=== PATIENT | male | born 1995 | race Asian ===

== ENCOUNTER 2019-01-21 04:15 | Emergency (ER) | payer SELFPAY ==
[~2019-01-21] VITALS: Ht 170.2 cm; Wt 76.2 kg
[2019-01-21 04:15] VITALS: BP 166/87
--- NOTE | 2019-01-21 04:15 | NUR ---
BIB WHEELCHAIR TO ER BED 9
--- NOTE | 2019-01-21 04:23 | NUR ---
Patient being evaluated by physician at bedside.
[2019-01-21] MEDS ORDERED: NACL 0.9% 1,000 ML IV ONE ×2 (04:25→05:35)
[2019-01-21] MEDS ORDERED: LORazepam 2 MG/ML VIAL IVP ONE (04:25)
--- NOTE | 2019-01-21 04:30 | NUR ---
23/M BIB FAMILY, C/O PALPITATIONS THIS [employer]. PER PT, PT TOOK COENZYME Q10, GLUCOSAMINE, B12 AND MILK THISTLE. DENIES PAIN. DENIES N/V. PT NOTED WITH MILD RESTLESSNESS AND FIDGETING. PT AWAKE AND ALERT, ANXIOUS APPEARING, SKIN NORMAL WARM AND DRY, RR EVEN AND MILDLY LABORED. DENIES HX OR RX. DENIES ALCOHOL OR SUBSTANCE ABUSE.
[2019-01-21 04:48] LABS: BASOPHILS % (AUTO) 0.3 % (0.0-2.0); EOSINOPHILS % (AUTO) 0.3 % (0.0-4.0); HEMATOCRIT 42.8 % (36-52); HEMOGLOBIN 14.5 g/dL (12.0-18.0); LYMPHOCYTES # (AUTO) 3.3 K/uL (2.0-11.5); LYMPHOCYTES % (AUTO) 29.7 % (20.5-51.1); MEAN CORPUSCULAR HEMOGLOBIN 30 pg (27-31); MEAN CORPUSCULAR HGB CONC 34 g/dL (33-37); MEAN CORPUSCULAR VOLUME 87.1 fL (80-94); MONOCYTES # (AUTO) 0.6 K/uL (0.8-1.0); MONOCYTES % (AUTO) 5.3 % (1.7-9.3); NEUTROPHILS # (AUTO) 7.1 K/uL (1.8-7.7); NEUTROPHILS % (AUTO) 64.4 % (42.2-75.2); PLATELET COUNT (AUTO) 258 K/uL (140-450); RED BLOOD CELL COUNT(AUTO) 4.91 MIL/uL (4.20-6.10); RED CELL DISTRIBUTION WIDTH 13.6 % (11.6-13.7); WHITE BLOOD COUNT (AUTO) 11.1 K/uL (4.8-10.8)
[2019-01-21 05:24] LABS: ALBUMIN 4.5 g/dL (3.4-5.0); ANION GAP 18.3 (8-16); CARBON DIOXIDE 22.6 mmol/L (21-32); CREATININE 1.5 mg/dL (0.7-1.3); THYROID STIMULATING HORMONE 2.59 uIU/mL (0.34-3.74); TOTAL BILIRUBIN 0.5 mg/dL (0.0-1.0)
[2019-01-21 05:27] LABS: POTASSIUM 2.9 mmol/L (3.5-5.1)
[2019-01-21] MEDS ORDERED: POTASSIUM CHLORIDE 10 MEQ TABER PO ONE (05:30)
[2019-01-21 05:53] LABS: BARBITURATE, URINE NEG. ng/ml (NEG <=200); BENZODIAZEPINE, URINE NEG. ng/mL (NEG <=200); CANNABINOID, URINE NEG. ng/mL (NEG <=50); COCAINE, URINE NEG. ng/mL (NEG <=300); OPIATE, URINE NEG. ng/mL (NEG <=2000); PHENCYCLIDINE SCREEN,URINE NEG. ng/mL (NEG <=25)
[2019-01-21 06:48] VITALS: BP 137/68
--- NOTE | 2019-01-21 06:48 | NUR ---
Patient discharged with v/s stable. Written and verbal after care instructions given and explained. Patient verbalized understanding. Ambulatory with steady gait. All questions addressed prior to discharge. Advised to follow up with PMD.
--- NOTE | 2019-01-21 10:51 | NUR ---
Late entry. Confirmed with RN that 1000ml 0.9 NS IV completed at 0545.
--- NOTE | 2019-01-21 10:53 | NUR ---
Also the second 1000ml IV 0.9 NS completed at discharge at 0645
== END 2019-01-21 06:48 | disposition home or self-care (01) ==
LOC: MED 04:15
DX: F41.9 Anxiety disorder, unspecified (principal); E87.6 Hypokalemia; E86.0 Dehydration; N17.9 Acute kidney failure, unspecified; R74.0 Nonspecific elevation of levels of transaminase and lactic acid dehydrogenase [LDH]; F15.90 Other stimulant use, unspecified, uncomplicated
CPT/HCPCS: 36415; 80053; 80305; 84443; 85025; 93005; 96361; 96374; 99284; G0482; J2060; J7030

== ENCOUNTER 2019-11-04 00:15 | Emergency (ER) | payer BC, MEDICAID ==
[~2019-11-04] VITALS: Ht 175.3 cm; Wt 76.2 kg
[2019-11-04 00:29] VITALS: BP 135/75
--- NOTE | 2019-11-04 00:32 | NUR ---
PT AMBULATED TO BED #1
--- NOTE | 2019-11-04 00:39 | NUR ---
Dr. Rausch examining patient.
--- NOTE | 2019-11-04 00:40 | NUR ---
PT C/O HEADACHE X 1 DAY. DENIES N/V, NO DIZZINESS, NO VISION PROBLEMS, AFEBRILE, DENIES SOB OR COUGH. PUPILS EQUAL AND REACTIVE. BED IN LOWEST POSITION, SIDERAIL UP X 1 NKA NO MED HX NO MEDS
[2019-11-04] MEDS ORDERED: KETOROLAC 60 MG/2 ML VIAL IM ONE (00:45)
--- NOTE | 2019-11-04 00:59 | NUR ---
X-RAY AT BEDSIDE
[2019-11-04 01:19] VITALS: BP 135/75
--- NOTE | 2019-11-04 01:19 | NUR ---
Patient discharged with v/s stable. Written and verbal after care instructions given and explained. Patient alert, oriented and verbalized understanding of instructions. Ambulatory with steady gait. All questions addressed prior to discharge. ID band removed. Patient advised to follow up with PMD. Rx of MTORIN given. Patient educated on indication of medication including possible reaction and side effects. Opportunity to ask questions provided and answered.
== END 2019-11-04 01:19 | disposition home or self-care (01) ==
LOC: MED 00:15
DX: F41.9 Anxiety disorder, unspecified (principal); R51 Headache; J02.9 Acute pharyngitis, unspecified
CPT/HCPCS: 71045; 96372; 99283; J1885; Q0092

== ENCOUNTER 2023-09-19 00:43 | Emergency (ER) | payer BC, MEDICAID ==
[~2023-09-19] VITALS: Ht 175.3 cm; Wt 80.3 kg
[2023-09-19 00:50] VITALS: BP 127/76; PULSE 81; RESP 17; TEMP 98.1; O2SAT 99
[2023-09-19] MEDS ORDERED: KEN.025C TP (04:23)
[2023-09-19] MEDS ORDERED: BACTO TP (04:25)
[2023-09-19] MEDS: DEXAMETHASONE 4 MG/ML VIAL PO ONE (04:45)
== END 2023-09-19 04:39 | disposition home or self-care (01) ==
LOC: MED 00:43
DX: L73.9 Follicular disorder, unspecified (principal); L25.9 Unspecified contact dermatitis, unspecified cause; Z79.899 Other long term (current) drug therapy
CPT/HCPCS: 99283; J1100